=== PATIENT | male | born 1985 | race Caucasian/White ===

== ENCOUNTER 2022-04-16 05:07 | Emergency (ER) | payer MEDICAID ==
[~2022-04-16] VITALS: Ht 172.7 cm; Wt 118.4 kg
[2022-04-16 05:10] VITALS: BP 116/90
--- NOTE | 2022-04-16 05:13 | NUR ---
Dr. Morris examining patient.
[2022-04-16 05:15] VITALS: BP 116/90
--- NOTE | 2022-04-16 05:15 | NUR ---
Patient discharged with v/s stable. Written and verbal after care instructions given and explained by Dr. Morris. Patient verbalized understanding. Ambulatory with steady gait. All questions addressed prior to discharge. Advised to follow up with PMD.
== END 2022-04-16 05:15 | disposition home or self-care (01) ==
LOC: MED 05:07
DX: K13.0 Diseases of lips (principal)
CPT/HCPCS: 99281